=== PATIENT | male | born 1985 | race Caucasian/White ===

== ENCOUNTER → 2025-02-25 08:15 | Outpatient (BNV) | payer OTHER, SELFPAY | PROVIDERS: Visit Provider Psychiatry & Neurology Psychiatry | DX: F43.0 Acute stress reaction (principal) | CPT/HCPCS: 99214 ==

== ENCOUNTER 2025-03-01 08:30 | Outpatient (RCR) | payer OTHER, SELFPAY ==
[2025-02-16 09:38] VITALS: BMI 40.6
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
--- NOTE | 2025-02-17 16:16 | HO.PHP ---
Clients case was opened and reviewed in teams today.
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
--- NOTE | 2025-02-18 12:23 | PC.NURSE ---
Patient reports he stopped taking his BP medications for the past few days. BP 130/90 P 80. Stated he stopped taking them as he does not care if something happens to him. When asked if he had any plans of intention of killing himself he stated he could never do that to his children. He reports if he had a heart attack that would be different. He is having a difficult time with being from his and children. I asked him if he had plans this weekend and he stated his is dropping off the children today to spend an overnight at his parents home with him. He is looking forward to this . He reports that he has supported his for many years and does not understand how she is not able to support him currently. He reports he is giving her her space currently and is trying not to text her. Dr. Cheney is aware. Patient is on the list to see Dr. Cheney. He is able to stay later if needed.
--- NOTE | 2025-02-18 12:54 | HO.PHP ---
[facility] staff member faxed over the referral of OP therapy to [facility] for David and requested a female therapist who has not attended [place] per David's request. [facility] staff member is awaiting a phone call with the scheduled appointment dates and times.
[2025-02-18 13:00] VITALS: BP 130/90; PULSE 80
--- NOTE | 2025-02-23 07:55 | HO.PHP ---
PHP admin, Rebecca, informed the team that David will not be in attendance to program due to lack of sleep and feeling exhausted. David reported no safety concerns and will be in attendance to program tomorrow.
--- NOTE | 2025-02-25 18:04 | P.PNPSP_ITS ---
Subjective Subjective Date of Service: 02/25/25 Reason For Visit: PTSD,anxiety,depression Interim History: ?Doing better the meds are really helping? Reports tolerating Risperdal well has been especially helpful for intrusive thoughts, feeling more emotionally in control and less depressed. He rates his depression at a 5/10 down from a 9/10. Anxiety at a 7/10. Intrusive thoughts also at a 5/10 down from a 10/10. He has been able to enjoy the company of others and able to get his mind off of his problems at home updates senior mortgage underwriter on developments. Expresses feeling a lot of guilt discusses his pending divorce from his . Is focused on his new friendships and rekindling old fri endships. He denies any SI HI AH or VH. Medication Compliance: Yes Side effects from medications: No Attending Groups: Yes Review of Systems Acute medical concerns: No Mental Status Exam Mental Status Exam Narrative: Alert, oriented, in no acute distress. Calm, cooperative, engaged. No psychomotor agitation or neurovegetative retardation. Eye contact maintained. Mood anxious, affect variable, brighter, some tearfulness, less lability. Speech normal. Thought process linear, coherent. Thought content related to stressors, denies any hopelessness or SI. Denies any aggressive ideation or HI. No paranoia or delusional content elicited. No evidence of psychosis. Insight and judgment - fair but adequate. Diagnostics Vital Signs (24Hr): BMI result Body Mass Index 40.6 Assessment & Plan Assessment & Plan (1) Acute stress reaction with predominately emotional disturbance: Status: Acute Code(s): F43.0 - Acute stress reaction Plan Admit to [facility] VS reviewed: afebrile, BP 130/90;?80 bpm increase risperidone 0.25 mg to TID with an additional 0.25 mg PRN agitation increase Buspar 10 mg to TID dosing along with risperidone continue escitalopram 20 mg qd he has not started Abilify, so will plan to discontinue since risperidone working well continue regular medications- hydroxyzine, lisinopril, Routine lab work as indicated EKG, routine for baseline QTc for medication considerations as indicated UDS as indicated Continue to monitor Patient educated on: diagnosis and medication risk/benefits Informed Consent: understands Reason for contiued partial hosp. stay Substantial Risk for: med/psych decompensation Certification I certify that partial hospital treatment is medically necessary due to the symptoms and problems resulting from the patient's mental illness and the failure to treat the patient at the partial hospital level of care would likely result in the patient requiring inpatient psychiatric care which could not be prevented at a less intensive level of care. Total time managing care of this patient today __30__ minutes. Discharge Plan Discharge Attending provider: Sunitha Cheney Additional Instructions: 03/04/2025? ? ? 10:00 AM - 11:00 AM Urgent Care Comprehensive Assessment Adult?in person? Prog: [facility] Clinic Site: [address] [place] [address] Staff: DAVIS NIEVES Medications: New aripiprazole 2 mg tablet 2 mg PO BEDTIME Qty: 30 0RF risperidone 0.5 mg tablet 0.5 mg PO BID Qty: 60 0RF buspirone 10 mg tablet 10 mg PO TID Qty: 90 0RF Continued lisinopril 20 mg tablet 20 mg PO DAILY ondansetron HCl 4 mg tablet 8 mg PO Q8H PRN (Reason: nausea/vomiting) Rx Instructions: TAKE 2 TABLETS EVERY 8 HOURS IF NEEDED FOR NAUSEA OR VOMITING FOR UP TO 15 DAYS hydroxyzine HCl 50 mg tablet 50 - 150 mg PO BEDTIME alprazolam 0.5 mg tablet 0.5 mg PO TID PRN (Reason: anxiety) Rx Instructions: TAKE 1 TABLET BY MOUTH THREE TIMES A DAY NEEDED FOR ANXIETY escitalopram oxalate 20 mg tablet 20 mg PO DAILY Changed risperidone 0.25 mg tablet 0.25 mg PO BID PRN (Reason: intrusive thoughts) Qty: 30 0RF risperidone 0.25 mg tablet 0.25 mg PO BID Qty: 60 0RF Discontinued buspirone 10 mg tablet 10 mg PO BID Stand Alone Forms: Patient Portal Discharge page Print Language: Bhutanese
--- NOTE | 2025-03-01 21:27 | HO.PHPPROGNO ---
Subjective Subjective Date of Service: 03/01/25 Reason For Visit: PTSD,anxiety,depression Interim History: Patient seen for follow-up, anticipating discharge at the end of program today.? Reports no acute issues or concerns. Medication compliant, medications well-tolerated. Denies any adverse effects.? I've been feeling really good. Meeting up with my old girlfriend from high school. We just reconnected... The intrusive thoughts are gone . He and will be getting a divorce but he feels he is coming to terms with this. Body anxiety better treated with prazosin. Risperidal working well at 0.25/0.25/0.5 and will avail him another 0.5 mg PRN for triggered sx. Denies any ED issues with escitalopram. Will continue all other medications at current doses. He expresses appreciation for his time in the program. Mood is stable.? Denies any hopelessness or SI. Denies thoughts of harming self or others at this time. Denies any aggressive ideation or HI. Denies any paranoia or AH or VH. Sleep, appetite, energy stable. Medication Compliance: Yes Side effects from medications: No Attending Groups: Yes Review of Systems Acute medical concerns: No Mental Status Exam Mental Status Exam Narrative: Alert, oriented, in no acute distress. Calm, cooperative. Mood stable, affect appropriate. Speech normal. Thought process linear, coherent, more goal-directed. Thought content related to stressors, future-oriented, denies any helplessness, hopelessness or SI.? No aggressive ideation or HI. No paranoia or delusional content elicited. No evidence of psychosis. Insight and judgment fair but adequate. Diagnostics Vital Signs (24Hr): BMI result Body Mass Index 40.6 Assessment & Plan Assessment & Plan (1) Acute stress reaction with predominately emotional disturbance: Status: Acute Code(s): F43.0 - Acute stress reaction (2) MARK (generalized anxiety disorder): Status: Acute Code(s): F41.1 - Generalized anxiety disorder (3) Depressive disorder: Status: Acute Code(s): F32.A - Depression, unspecified Plan Discharge from [facility] Continue regular medications Refills sent to pharmacy Will defer further medication management to outpatient provider Psych provider appointment on 03/14 *Safety plan reviewed *Discharge diagnoses, treatment course, discharge plan have been reviewed with patient (including medication regime, medication management, potential side effects) as well as treatment rationale were also revisited *Discharge paperwork signed and given to patient, copy sent for scanning to chart Patient educated on: diagnosis and medication risk/benefits Informed Consent: understands Reason for contiued partial hosp. stay Substantial Risk for: stable for discharge Certification I certify that partial hospital treatment is medically necessary due to the symptoms and problems resulting from the patient's mental illness and the failure to treat the patient at the partial hospital level of care would likely result in the patient requiring inpatient psychiatric care which could not be prevented at a less intensive level of care. Total time managing care of this patient today _30___ minutes. Discharge Plan Discharge Attending provider: Sunitha Cheney Additional Instructions: 03/04/2025? ? ? 10:00 AM - 11:00 AM Urgent Care Comprehensive Assessment Adult?in person? Prog: [facility] Clinic Site: [address] [place] [address] Staff: DAVIS NIEVES Medications: New risperidone 0.5 mg tablet 0.5 mg PO BID Qty: 60 0RF buspirone 10 mg tablet 10 mg PO TID Qty: 90 0RF prazosin 1 mg capsule 1 - 2 mg PO BEDTIME Qty: 30 0RF Continued lisinopril 20 mg tablet 20 mg PO DAILY ondansetron HCl 4 mg tablet 8 mg PO Q8H PRN (Reason: nausea/vomiting) Rx Instructions: TAKE 2 TABLETS EVERY 8 HOURS IF NEEDED FOR NAUSEA OR VOMITING FOR UP TO 15 DAYS hydroxyzine HCl 50 mg tablet 50 - 150 mg PO BEDTIME alprazolam 0.5 mg tablet 0.5 mg PO TID PRN (Reason: anxiety) Rx Instructions: TAKE 1 TABLET BY MOUTH THREE TIMES A DAY NEEDED FOR ANXIETY escitalopram oxalate 20 mg tablet 20 mg PO DAILY Changed risperidone 0.25 mg tablet 0.25 mg PO BID Qty: 60 0RF Discontinued buspirone 10 mg tablet 10 mg PO BID Stand Alone Forms: Patient Portal Discharge page Patient Education: PTSD (Post Traumatic Stress Disorder) (ED), PTSD (Post Traumatic Stress Disorder) (DC) Print Language: Macedonian
== END 2025-03-01 23:59 | disposition home or self-care (01) ==
LOC: HO.PHPA 08:30
PROVIDERS: Visit Provider Psychiatry & Neurology Psychiatry
DX: F43.0 Acute stress reaction (principal); F41.1 Generalized anxiety disorder; F32.A Depression, unspecified; Z79.899 Other long term (current) drug therapy
CPT/HCPCS: 90791; 90853

== ENCOUNTER → 2025-06-08 10:00 | Outpatient (BNV) | payer OTHER, SELFPAY | PROVIDERS: Visit Provider Psychiatry & Neurology Psychiatry | DX: F43.0 Acute stress reaction (principal); F41.1 Generalized anxiety disorder; F32.A Depression, unspecified; F43.10 Post-traumatic stress disorder, unspecified | CPT/HCPCS: 90792; 99213 ==

== ENCOUNTER 2025-06-09 10:00 | Outpatient (RCR) | payer OTHER, SELFPAY ==
[2025-05-30 16:04] VITALS: BMI 42.0
[2025-05-30 16:06] VITALS: BP 122/76; PULSE 96; RESP 16; TEMP 36.6; O2SAT 98
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
--- NOTE | 2025-06-02 16:26 | HO.PHP ---
Client's case was open and reviewed in teams.
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
== END 2025-06-09 23:59 | disposition home or self-care (01) ==
LOC: HO.PHPA 10:00
PROVIDERS: Visit Provider Psychiatry & Neurology Psychiatry
DX: F32.A Depression, unspecified (principal); F43.0 Acute stress reaction; F41.1 Generalized anxiety disorder; F43.10 Post-traumatic stress disorder, unspecified; Z79.899 Other long term (current) drug therapy
CPT/HCPCS: 90791; 90853